=== PATIENT | male | born 1975 | race Caucasian/White ===

== ENCOUNTER 2016-11-19 16:35 | Emergency (ER) | payer MEDICAID ==
[~2016-11-19] VITALS: Ht 170.2 cm; Wt 80.0 kg
[2016-11-19] MEDS ORDERED: IBUPROFEN 600MG TABLET PO ONE (17:45)
[2016-11-19 19:45] VITALS: BP 125/78
== END 2016-11-19 19:50 | disposition home or self-care (01) ==
LOC: ER 17:51
DX: R00.2 Palpitations (principal); M79.652 Pain in left thigh; R20.0 Anesthesia of skin; F17.200 Nicotine dependence, unspecified, uncomplicated; Z87.442 Personal history of urinary calculi
CPT/HCPCS: 93005; 93971; 99284

== ENCOUNTER 2017-02-19 13:52 | Emergency (ER) | payer MEDICAID ==
[~2017-02-19] VITALS: Ht 170.2 cm; Wt 79.0 kg
[2017-02-19] MEDS ORDERED: KETOROLAC 60MG/2ML VIAL IM ONE (14:15)
[2017-02-19 14:18] VITALS: BP 137/84
== END 2017-02-19 14:22 | disposition home or self-care (01) ==
LOC: ER 14:11
DX: S33.9XXA Sprain of unspecified parts of lumbar spine and pelvis, initial encounter (principal); Z87.442 Personal history of urinary calculi; X58.XXXA Exposure to other specified factors, initial encounter; Y93.89 Activity, other specified; Y92.89 Other specified places as the place of occurrence of the external cause; Y99.8 Other external cause status
CPT/HCPCS: 96372; 99283; J1885